=== PATIENT | female | born 1955 | race Caucasian/White ===

== ENCOUNTER 2018-01-07 14:44 | Emergency (ER) | payer BC, OTHER, SELFPAY ==
[~2018-01-07] VITALS: Ht 160 cm; Wt 59.1 kg
[2018-01-07] MEDS ORDERED: MELO15TA24 PO (15:15)
[2018-01-07] MEDS ORDERED: HYDR-3241 PO (15:15)
[2018-01-07] MEDS ORDERED: CITA40TA5 PO (15:15)
[2018-01-07] MEDS ORDERED: BACL-19 PO (15:15)
[2018-01-07] MEDS ORDERED: LIDOCAINE-MPF 2% ,5ML ONE ×2 (15:23→15:29)
[2018-01-07] MEDS ORDERED: MORPHINE SULFATE 4 MG/ML, 1ML ONE (15:29)
[2018-01-07] MEDS ORDERED: ONDANSETRON 2MG/ML, 2ML ONE (15:29)
[2018-01-07] MEDS ORDERED: ONDANSETRON 2MG/ML, 2ML IVPush ONE (15:30)
[2018-01-07] MEDS ORDERED: MORPHINE SULFATE 4 MG/ML, 1ML IVPush PRN (15:30)
[2018-01-07] MEDS ORDERED: LIDOCAINE 2%, 20ML INFIL ONE (15:30)
[2018-01-07] MEDS ORDERED: HYDROmorphone 1 MG/ML, 1ML IV ONE (16:00)
[2018-01-07] MEDS ORDERED: HYDROmorphone 1 MG/ML, 1ML ONE ×2 (16:01→16:06)
[2018-01-07 17:07] VITALS: BP 119/73
== END 2018-01-07 18:48 | disposition home or self-care (01) ==
LOC: ED 18:30
DX: S63.284A Dislocation of proximal interphalangeal joint of right ring finger, initial encounter (principal); S42.212A Unspecified displaced fracture of surgical neck of left humerus, initial encounter for closed fracture; S80.811A Abrasion, right lower leg, initial encounter; W11.XXXA Fall on and from ladder, initial encounter; Y93.89 Activity, other specified; Y92.89 Other specified places as the place of occurrence of the external cause; Y99.9 Unspecified external cause status
CPT/HCPCS: 26770; 73030; 73140; 96374; 96375; 99284; J1170; J2405